=== PATIENT | female | born 1960 | race Caucasian/White ===

== ENCOUNTER 2022-02-03 10:53 | Emergency (ER) | payer BC, OTHER ==
[~2022-02-03] VITALS: Ht 167 cm; Wt 107.0 kg
--- NOTE | 2022-02-03 11:14 | ED Fever ---
History of Present Illness General Chief Complaint: Back Problems Stated Complaint: FEVER; BACK PAIN Source: patient Exam Limitations: no limitations History of Present Illness Date Seen by Provider: Feb 03, 2022 Time Seen by Provider: 10:57 Initial Comments 61yoF coming in due to fever and body aches with right flank pain. Started on Thursday, and she attributes it to being around her grandchild which is RSV positive. Denies any cough, nausea, vomiting, dysuria, urinary frequency, abdominal pain, chest pain, shortness of breath, rash, weakness, numbness, or any other concerns. Has been taking ibuprofen and/or Tylenol as needed. Took both of them this morning. Temperatures been as high as 101. She has had some loose stools associated with it. She otherwise takes no medicines daily. Allergies and Home Medications Allergies Coded Allergies: codeine (Verified Allergy, Unknown, 02/03/22) Patient Home Medication List Home Medication List Reviewed: Yes Review of Systems Review of Systems Constitutional: fever EENTM: No blurred vision Respiratory: No cough Cardiovascular: No chest pain Gastrointestinal: no symptoms reported Genitourinary: other (flank pain) Musculoskeletal: no symptoms reported Skin: no symptoms reported Psychiatric/Neurological: No Symptoms Reported Hematologic/Lymphatic: No Symptoms Reported Immunological/Allergic: no symptoms reported All Other Systems Reviewed Negative Unless Noted: Yes Past Ofhsnro-Zqwqfm-Lemuki Hx Patient Social History Tobacco Use?: No Use of E-Cig and/or Vaping dev: No Substance use?: No Alcohol Use?: No Pt feels they are or have been: No Past Medical History Surgery/Hospitalization HX: HYSTERECTOMY EAR SURGERY A-FIB TONSILECTOMY Surgeries: Yes Physical Exam Vital Signs - First Documented 02/03/22 11:00 Temp 35.9 Pulse 91 Resp 22 B/P (MAP) 137/89 (105) Pulse Ox 97 O2 Delivery Room Air Capillary Refill : Height: '" Weight: lbs. oz. kg; BMI Method: General Appearance: WD/WN, no apparent distress Eyes: Bilateral Eye Normal Inspection HEENT: PERRL/EOMI, normal ENT inspection, pharynx normal Neck: non-tender, full range of motion, supple, normal inspection Respiratory: chest non-tender, lungs clear, normal breath sounds, no respiratory distress, no accessory muscle use Cardiovascular: regular rate, rhythm, no edema, no murmur Gastrointestinal: normal bowel sounds, non tender, soft; No distended, No guarding, No rebound Extremities: normal range of motion, non-tender, normal inspection, no pedal edema, no calf tenderness, normal capillary refill Neurologic/Psychiatric: no motor/sensory deficits, alert, normal mood/affect Skin: normal color, warm/dry Lymphatic: no adenopathy Progress/Results/Core Measures Suspected Sepsis SIRS Temperature: Pulse: Respiratory Rate: Blood Pressure / Mean: Results/Orders Lab Results Laboratory Tests Test 02/03/22 11:04 02/03/22 11:18 Range/Units Urine Color DARK YELLOW Urine Clarity CLOUDY Urine pH 6.0 5-9 Urine Specific [place] 1.015 L 1.016-1.022 Urine Protein NEGATIVE NEGATIVE Urine Glucose (UA) NEGATIVE NEGATIVE Urine Ketones NEGATIVE NEGATIVE Urine Nitrite POSITIVE H NEGATIVE Urine Bilirubin NEGATIVE NEGATIVE Urine Urobilinogen 0.2 < = 1.0 MG/DL Urine Leukocyte Esterase 1+ H NEGATIVE Urine RBC (Auto) 2+ H NEGATIVE Urine RBC 2-5 H /HPF Urine WBC 50-100 H /HPF Urine Squamous Epithelial Cells 2-5 /HPF Urine Crystals NONE /LPF Urine Bacteria LARGE H /HPF Urine Casts NONE /LPF Urine Mucus SMALL H /LPF Urine Culture Indicated YES My Orders Orders - LANCE RAMIRES MD Ua Culture If Indicated (02/03/22 11:08) Influenza A And B By Pcr (02/03/22 11:08) Covid 19 Inhouse Test (02/03/22 11:08) Urine Culture (02/03/22 11:04) Cefdinir Capsule (Omnicef Capsule) (02/03/22 11:30) Vital Signs/I&O 02/03/22 11:00 Temp 35.9 Pulse 91 Resp 22 B/P (MAP) 137/89 (105) Pulse Ox 97 O2 Delivery Room Air Capillary Refill : Progress Note : Progress Note 61-year-old female with above history coming in due to fever and flank pain. ABCs were intact and vitals were stable on presentation. Physical exam with some flank tenderness and cloudy urine. Urinalysis concerning for infection with nitrites and multiple white blood cells concerning for clinical pyelonephritis. We will give her cefdinir and have her follow-up as an outpatie nt. She is well-appearing here. Departure Impression Primary Impression: Pyelonephritis Disposition: HOME, SELF-CARE Condition: Stable Departure-Patient Inst. Decision time for Depature: 11:31 Referrals: ADITHYA HUTCHINSON APRN (PCP) Primary Care Physician [facility] (Family) Primary Care Physician Patient Instructions: Kidney Infection (DC) Add. Discharge Instructions: You have an infection this likely made although bacterial kidney which is why you are having fever and back pain. You will be on antibiotics for the next 10 days. Things should start improving in the next couple of days, if not then follow back up with your regular doctor. Continue to take Tylenol and/or ibuprofen as needed for fever. Scripts Cefdinir (Cefdinir) 300 Mg Capsule 300 MG PO BID for 10 Days, #20 CAP 0 Refills Prov: LANCE RAMIRES MD 02/03/22 Work/School Note: Work Release Form Date Seen in the Emergency Department: Feb 03, 2022 Return to Work: Feb 04, 2022 Restrictions: Return-No Fever (24hrs) LANCE RAMIRES MD Feb 03, 2022 11:14
[2022-02-03 11:15] LABS: BILIRUBIN,URINE NEGATIVE (NEGATIVE); CLARITY,URINE CLOUDY; GLUCOSE, URINE (UA) NEGATIVE (NEGATIVE); KETONES,URINE NEGATIVE (NEGATIVE); LEUKOCYTE ESTERASE ,URINE 1+ (NEGATIVE); NITRITE,URINE POSITIVE (NEGATIVE); PROTEIN,URINE NEGATIVE (NEGATIVE)
[2022-02-03 11:16] LABS: COLOR,URINE DARK YELLOW
[2022-02-03 11:20] LABS: BACTERIA,URINE LARGE /HPF; WBC,URINE 50-100 /HPF
[2022-02-03] MEDS ORDERED: CEFDINIR 300 MG (OMNICEF) CAP PO ONE (11:30)
[2022-02-03] MEDS ORDERED: CEFD300C3 PO (11:32)
[2022-02-03 11:40] VITALS: BP 137/89
== END 2022-02-03 11:41 | disposition home or self-care (01) ==
LOC: ER FS 10:56
DX: N12 Tubulo-interstitial nephritis, not specified as acute or chronic (principal); Z20.822 Contact with and (suspected) exposure to COVID-19
CPT/HCPCS: 81000; 87077; 87088; 87186; 87636